=== PATIENT | female | born 1990 | race Caucasian/White ===

== ENCOUNTER 2019-05-10 13:08 | Emergency (ER) | payer OTHER, SELFPAY ==
[2019-05-10 13:15] VITALS: BP 107/72; PULSE 82; RESP 14; TEMP 36.3; O2SAT 98
--- NOTE | 2019-05-10 14:26 | ED.FALL ---
HPI - Fall <Scott Steve [facility] - Last Filed: 05/10/19 20:24> General Chief Complaint: Fall Stated Complaint: 28wks preg, had a fall Time Seen by Provider: 05/10/19 14:12 Source: patient and family Mode of arrival: ambulatory Limitations: no limitations History of Present Illness HPI Narrative: This is a 28-year-old female, nonsmoker, and 28 week EGA, presents with her significant other after she sustained a fall. Patient reports walking on a slippery ground with wearing slippers and fell and landed on her buttock on a rock. Patient denies injuring her abdomen area, vaginal bleeding, abdominal pain. Patient reports she has been feeling movement as usual. Patient denies any urinary symptoms. The patient is here to be evaluated and to ensure well-being. Related Data Home Medications Medication Instructions Recorded Confirmed PNV cmb#95-ferrous fumarate-FA 1 tab PO DAILY 05/10/19 05/10/19 [] Allergies Allergy/AdvReac Type Severity Reaction Status Date / Time cefprozil Allergy Unknown Verified 05/10/19 13:18 cephalexin [From Keflex] Allergy Unknown Verified 05/10/19 13:18 Penicillins Allergy Unknown Verified 05/10/19 13:18 Review of Systems <Scott Steve [facility] - Last Filed: 05/10/19 20:24> Review of Systems ROS Unobtainable: All systems reviewed & are unremarkable except as noted in HPI and below Exam <Sctot Steve [facility] - Last Filed: 05/10/19 20:24> Narrative Exam Narrative: General appearance: well developed, well nourished, in no acute distress. Head: normocephalic, atraumatic, no scalp lesions, non-tender. Eye: pupil equal, round. EOMI. Nose: nares patent. Oral: mucosa moist. Neck/Thyroid: neck supple, full range of motion, no visible masses. Skin: no suspicious rashes, lesions over visible areas. Warm and dry. Heart: no clubbing, no cyanosis, no edema. Regular rate and rhythm, S1 and S2 Lungs: Breathing even and unlabored. No stridor. No accessory muscles used. Lung sounds cleared bilaterally Chest: normal shape and expansion. Abdomen: non-obese, non-distended. Soft and nontender to palpate. Bowel sounds present in 4 quadrants. Neurologic: alert and oriented. Cognitive exam, [employer] and PNS grossly intact on informal exam. Psych: good eye contact, normal affect. Initial Vital Signs Initial Vital Signs: Vital Signs Temperature 97.4 F L 05/10/19 13:15 Pulse Rate 82 05/10/19 13:15 Respiratory Rate 14 05/10/19 13:15 Blood Pressure 107/72 05/10/19 13:15 Pulse Oximetry 98 05/10/19 13:15 Back/Spine/Pelvis Back: normal to inspection, No back tenderness, No CVA tenderness, No ecchymosis and No erythema Thoracic/Lumbar Spine: thoracic and lumbar spine normal to inspection, straight leg raise negative bilaterally, No paraspinal tenderness and No lumbar spinal tenderness Sacroiliac Joints: nontender <Marnie Sharif DO - Last Filed: 05/11/19 19:18> Initial Vital Signs Initial Vital Signs: Vital Signs Temperature 97.4 F L 05/10/19 13:15 Pulse Rate 82 05/10/19 13:15 Respiratory Rate 14 05/10/19 13:15 Blood Pressure 107/72 05/10/19 13:15 Pulse Oximetry 98 05/10/19 13:15 PFSH <DAVID Bautista - Last Filed: 05/10/19 20:24> Surgical History Hx of oral surgery (Acute) S/P reconstruction of anterior cruciate ligament (Acute) Social History Smoking Status: Never smoker Social History Smoking Status: Never smoker Course <DAVID Bautista - Last Filed: 05/10/19 20:24> Orders Ordered: ED Orders 05/10/19 14:07 Urine Microscopic Stat Vital Signs Vital signs: Vital Signs - 8 hr 05/10/19 13:15 Temperature 97.4 F L Pulse Rate 82 Respiratory Rate 14 Blood Pressure 107/72 Pulse Oximetry 98 <Marnie Sharif DO - Last Filed: 05/11/19 19:18> Orders Ordered: ED Orders 05/10/19 14:07 Urine Microscopic Stat Vital Signs Vital signs: Vital Signs - 8 hr 09/14/19 13:15 Temperature 97.4 F L Pulse Rate 82 Respiratory Rate 14 Blood Pressure 107/72 Pulse Oximetry 98 MDM - Fall <BRIANNE BautistaP - Last Filed: 05/10/19 20:24> Differential Diagnosis Differential diagnosis: Likely other (Contusion to buttock, fall, monitoring) Medical Records Attestation: I reviewed the patient's medical records. Lab Data Labs: Lab Results 05/10/19 Range/Units 14:07 Urine RBC None seen (0-5/HPF) Urine WBC 0-1/hpf (0-5/HPF) Ur Squamous Epith Cells 0-1 /hpf (0-5/HPF) Urine Bacteria None seen (None) Ur Culture Indicated? Cult not indicated Urine Dip Bedside Urine Glucose Negative Bedside Urine Bilirubin - Negative Bedside Urine Ketone - Negative Urine Specific [place] 1.015 Bedside Urine Occult Blood - Negative Bedside Urine pH 6.0 Bedside Urine Protein +/- 15 Bedside Urine Urobilinogen +/- 1mg Bedside Urine Nitrite - Negative Bedside Urine Leukocytes +/- 15 Esterase [facility] Narrative Medical decision making narrative: This patient has presented to ED with significant other for an evaluation after slipped and fall onto her buttock and well-being. The patient reports no direct trauma to after from this fall. Patient denies vaginal bleeding or abdominal pain after the fall. The abdomen was soft and nontender to palpate. Patient has been feeling movement as knee usual. heart tone per Doppler test was in 130s in the ED. Urine test was obtained and shows no RBC or bacteria. Return precautions were discussed with the patient and patient was advised to follow up with her director of psychiatry in 2-3 days and continue with her current medications and Tylenol as needed for discomfort. Patient agrees with treatment plan and no further questions were expressed at this time. <Marnie Sharif DO - Last Filed: 05/11/19 19:18> Lab Data Labs: Lab Results 05/10/19 Range/Units 14:07 Urine RBC None seen (0-5/HPF) Urine WBC 0-1/hpf (0-5/HPF) Ur Squamous Epith Cells 0-1 /hpf (0-5/HPF) Urine Bacteria None seen (None) Ur Culture Indicated? Cult not indicated Urine Dip Bedside Urine Glucose Negative Bedside Urine Bilirubin - Negative Bedside Urine Ketone - Negative Urine Specific [place] 1.015 Bedside Urine Occult Blood - Negative Bedside Urine pH 6.0 Bedside Urine Protein +/- 15 Bedside Urine Urobilinogen +/- 1mg Bedside Urine Nitrite - Negative Bedside Urine Leukocytes +/- 15 Esterase Discharge Plan Departure Patient Disposition: Home Clinical Impression: Fall Qualifiers: Encounter type: initial encounter Qualified Code(s): W19.XXXA - Unspecified fall, initial encounter Contusion, buttock Qualifiers: Encounter type: initial encounter Qualified Code(s): S30.0XXA - Contusion of lower back and pelvis, initial encounter Discharge Date/Time: 05/10/19 15:12 Instructions: DI for Contusion Activity Restrictions/Additional Instructions: You have been diagnosed with [fall, contusion to buttock, . The urine test does not appears to be having an infection.]. What to do: *Take your medications as directed. You can take [id number] Tylenol as needed for discomfort. *Follow up with your primary care provider in 2-3 days, call for an appointment. Let them know you were seen in the ED and that we asked you to be seen in follow up. *Return to ED if you have any new, worsening, or concerning symptoms, such as [vaginal bleeding, decreased movement even after you take large glass of water and resting on left side for an hour, abdominal pain, chest pain, breathing difficulty, unable to tolerate fluids, dizziness, any other acute concerns, weakness to extremities, incontinence, loss of sensation in groin area]. Prescriptions: No Action PNV cmb#95-ferrous fumarate-FA [] 28 mg iron- 800 mcg tablet 1 tab PO DAILY RF: 0 Referrals: Kalpana Turner ARNP [Non-Staff] -
[2019-05-10 14:48] LABS: Bacteria Urine None Seen; RBC Urine None Seen (0-5/HPF)
[2019-05-10 14:56] LABS: Culture Indicated Urine Cult Not Indicated; Squamous Epithelial Cell Urine 0-1 /HPF (0-5/HPF); WBC Urine 0-1/HPF (0-5/HPF)
== END 2019-05-10 15:12 | disposition home or self-care (01) ==
PROVIDERS: Emergency Provider Nurse Practitioner Family
DX: S30.0XXA Contusion of lower back and pelvis, initial encounter (principal); W19.XXXA Unspecified fall, initial encounter
CPT/HCPCS: 81003; 81015; 99282; 99283

== ENCOUNTER 2020-08-25 13:13 | Emergency (ER) | payer OTHER, SELFPAY ==
[2020-08-25 13:27] VITALS: BP 139/73; PULSE 79; RESP 16; TEMP 36.2; O2SAT 99; BMI 37.2
[2020-08-25 13:55] LABS: Add Manual Diff / Slide Review NO; Basophils Absolute Auto 0 /uL (0-100); Basophils Percent Auto 0.6 % (0-2); Eosinophils Absolute Auto 200 /uL (0-450); Eosinophils Percent Auto 2.1 % (2-4); Hematocrit 40.7 % (36-46); Hemoglobin 13.4 g/dL (12.0-16.0); Lymphocytes Absolute Auto 2000 /uL (1100-4500); Mean Corpuscular HGB Conc 32.9 % (30-36); Mean Corpuscular Volume 88.2 fL (80-100); Monocytes Absolute Auto 500 /uL (0-900); Neutrophils Absolute Auto 5400 /uL (1500-7000); Neutrophils Percent Auto 66.3 % (50-75); Platelet Count 270 X10^3/uL (150-400); Red Blood Cell Count 4.62 X10^6/uL (4.0-5.2); Red Cell Distribution Width 12.8 % (11.6-14.8); White Blood Cell Count 8.1 X10^3/uL (4.5-11.0)
[2020-08-25 13:58] LABS: BUN Creatinine Ratio 17.8 (6-22); Blood Urea Nitrogen 13 mg/dL (7-17); Calcium 9.3 mg/dL (8.4-10.2); Carbon Dioxide 30 mmol/L (22-32); Chloride 103 mmol/L (98-107); Estimated Glomerular Filt Rate > 60.0 mL/min (>60); Glucose 97 mg/dL (70-100); HEMOLYSIS < 15 (0-50); Potassium 4.4 mmol/L (3.4-5.1); Sodium 138 mmol/L (137-145)
--- NOTE | 2020-08-25 14:04 | ED_ITS ---
HPI - Psych General Chief Complaint: Psychiatric Symptoms Stated Complaint: On Tum[place]acori-Carmen 5weeks/panic/dizzy/head pain x1 week Time Seen by Provider: 08/25/20 13:25 Source: patient Mode of arrival: Ambulatory Limitations: no limitations History of Present Illness HPI Narrative: Patient is a 30-year-old female with history of severe depression and anxiety presenting with possible medication reaction. She states that she has been on multiple antidepressant and antianxiety medications in the past. She has actually been hospitalized a few times in [place] after cutting herself. She was and then breast feeding and was unable to take any other medication besides Zoloft which was not helping. Is 5 weeks ago she was started on lithium. And she says 3 weeks ago the lithium dose was increased boost Brown was also added to her regimen. She said once the buspirone was added she started not feeling well. She woke up in the middle of the night with severe chest pain feeling like she could not breathe in december not . The feeling lasted for a few minutes and went away. She took the buspirone for about 1 week and then stopped thinking that she might start feeling better. She has not been on the medication for week but has continued her increased dose of lithium. She continues to not feel right. She has severe chest pain and anxiety mostly at nighttime when she lies down. She was supposed to have an appointment today but was supposed to get blood work done. She was not given a blood slip so she did not have blood work in the therefore would not see her. She is in the emergency department to be evaluated She denies any suicidal or homicidal ideations Related Data Home Medications Medication Instructions Recorded Confirmed PNV b#95-ferrous fumarate-FA 1 tab PO DAILY 05/10/19 05/10/19 [] Allergies Allergy/AdvReac Type Severity Reaction Status Date / Time cefprozil Allergy Unknown Verified 08/25/20 13:26 cephalexin [From Keflex] Allergy Unknown Verified 08/25/20 13:26 Penicillins Allergy Unknown Verified 08/25/20 13:26 Review of Systems Review of Systems Narrative: GENERAL: Denies chills, fatigue, malaise, fever, sweats, travel HEENT: Denies sinus pain, ear pain, sore throat, difficulty swallowing, neck pain RESPIRATORY: Denies dyspnea, cough, wheezing, hemoptysis, sputum. CARDIOVASCULAR: Denies chest pain, palpitations, orthopnea, edema GASTROINTESTINAL: Denies nausea, vomiting, abdominal pain, diarrhea, constipation, melena. : Denies dysuria, frequency, incontinence, hematuria, urinary retention, flank pain. MUSCULOSKELETAL: Denies weakness, joint pain, or bony pain SKIN: No rash, no erythema, no pruritus NEUROLOGIC: Denies weakness, dizziness, headache, numbness, change in speech, confusion PSYCHIATRIC: See HPI 12 point review of systems is negative except for those stated above and HPI Patient History Surgical History Hx of oral surgery S/P reconstruction of anterior cruciate ligament Social History Smoking Status: Never smoker Smoking Status: Never smoker alcohol intake frequency: holidays/special occasions only Substance Use Type: does not use Exam Initial Vital Signs Initial Vital Signs: Vital Signs Temperature 97.2 F L 08/25/20 13:27 Pulse Rate 79 08/25/20 13:27 Respiratory Rate 16 08/25/20 13:27 Blood Pressure 139/73 08/25/20 13:27 Pulse Oximetry 99 08/25/20 13:27 GENERAL: [Well-appearing, well-nourished] and in [no acute] distress. HEENT: Head atraumatic,EOMI, pupils reactive, face symmetric, moist mucous membranes CARDIOVASCULAR: Regular rate and rhythm without murmurs, rubs or gallops. RESPIRATORY: Breath sounds equal bilaterally, no wheezes rales or rhonchi EXTREMITIES: Normal range of motion, no clubbing or edema. Neurovascularly intact NEUROLOGICAL: Alert and oriented x4. SKIN: Warm, dry, no laceration, no petechiae, no rashes or lesions. Course Orders Ordered: ED Orders 08/25/20 13:38 Basic Metabolic Panel Stat Complete Blood Count AUTO DIFF Stat [place]Carmen Stat 08/25/20 13:57 EKG-12 Lead Stat Vital Signs Vital signs: Vital Signs - 8 hr 08/25/20 13:27 08/25/20 16:03 Temperature 97.2 F L Pulse Rate 79 62 Respiratory Rate 16 18 Blood Pressure 139/73 116/77 Pulse Oximetry 99 100 MDM - Psych Lab Data Attestation: I reviewed the patient's lab results. Result diagrams: 08/25/20 13:38 12/30/20 13:38 Labs: Lab Results 08/25/20 08/25/20 08/25/20 Range/Units 13:38 13:38 13:38 WBC 8.1 (4.5-11.0) X10^3/uL RBC 4.62 (4.0-5.2) X10^6/uL Hgb 13.4 (12.0-16.0) g/dL Hct 40.7 (36-46) % MCV 88.2 (80-100) fL MCH 29.0 (26-34) PG MCHC 32.9 (30-36) % RDW 12.8 (11.6-14.8) % Plt Count 270 (150-400) X10^3/uL Neut % (Auto) 66.3 (50-75) % Lymph % (Auto) 25.0 (25-40) % [place] % (Auto) 6.0 (3-14) % Eos % (Auto) 2.1 (2-4) % Baso % (Auto) 0.6 (0-2) % Neut # (Auto) 5400 (1896-6077) /uL Lymph # (Auto) 2000 (8344-1532) /uL [place] # (Auto) 500 (0-900) /uL Eos # (Auto) 200 (0-450) /uL Baso # (Auto) 0 (0-100) /uL Sodium 138 (137-145) mmol/L Potassium 4.4 (3.4-5.1) mmol/L Chloride 103 (98-107) mmol/L Carbon Dioxide 30 (22-32) mmol/L BUN 13 (7-17) mg/dL Creatinine 0.73 (0.52-1.04) mg/dL Estimated GFR > 60.0 (>60) mL/min BUN/Creatinine Ratio 17.8 (6-22) Glucose 97 (70-100) mg/dL Calcium 9.3 (8.4-10.2) mg/dL [place]-Carmen < 0.2 L (0.6-1.2) mmol/L ECG Data Attestation: I personally reviewed and interpreted this ECG as follows: Interpretation: Normal sinus rhythm rate 62 p.r. interval 199 QRS [address] changes who T-wave inversion noted in lead 3 only no priors to compare MDM Narrative Medical decision making narrative: [id number] spoke with Tegan at the patient's psychiatrist who recommend patient take hydroxyzine she is not taking hyd roxyzine. Also states that she will call in Ativan as as needed medication to [facility] for the patient. Recommend patient see them in clinic next week. No other changes at this time Discharge Plan Departure Patient Disposition: Home Clinical Impression: Adverse drug reaction, Anxiety reaction Instructions: DI for Anxiety -- Adult Activity Restrictions/Additional Instructions: *You have been diagnosed with anxiety reaction, drug reaction *What to do: At this time, your provider will call in prescription for Ativan intake as needed. She recommends that you see her next week in the office. No need for blood work it was done in the emergency department. [place]-Carmen level less than 0.2 *Continue to take medications as directed Hydroxyzine as prescribed *Follow up with your primary care provider in 2-3 days *Return to ER if you should have increased chest pain, palpitations, anxiety, thoughts of hurting self or any new, worsening or concerning symptoms Prescriptions: No Action PNV cmb#95-ferrous fumarate-FA [] 28 mg iron- 800 mcg tablet 1 tab PO DAILY RF: 0 Referrals: Aston,Tegan, [facility] [Non-Staff] -
[2020-08-25 14:15] LABS: Lithium < 0.2 mmol/L (0.6-1.2)
[2020-08-25 16:03] VITALS: BP 116/77; PULSE 62; RESP 18; O2SAT 100
== END 2020-08-25 16:03 | disposition home or self-care (01) ==
PROVIDERS: Emergency Provider Emergency Medicine
DX: F41.1 Generalized anxiety disorder (principal); T50.905A Adverse effect of unspecified drugs, medicaments and biological substances, initial encounter; R51.9 Headache, unspecified; F32.9 Major depressive disorder, single episode, unspecified; R07.9 Chest pain, unspecified
CPT/HCPCS: 80048; 80178; 85025; 93005; 99283; 99284

== ENCOUNTER → 2020-10-22 12:03 | Outpatient (CLI) | payer OTHER, SELFPAY ==
[2020-10-22 12:42] LABS: Add Manual Diff / Slide Review NO; Basophils Absolute Auto 100 /uL (0-100); Basophils Percent Auto 0.6 % (0-2); Eosinophils Absolute Auto 100 /uL (0-450); Eosinophils Percent Auto 0.9 % (2-4); Hematocrit 39.5 % (36-46); Hemoglobin 13.4 g/dL (12.0-16.0); Lymphocytes Absolute Auto 2000 /uL (1100-4500); Lymphocytes Percent Auto 19.2 % (25-40); Mean Corpuscular HGB Conc 33.9 % (30-36); Mean Corpuscular Hemoglobin 29.4 PG (26-34); Mean Corpuscular Volume 86.8 fL (80-100); Monocytes Absolute Auto 600 /uL (0-900); Neutrophils Absolute Auto 7500 /uL (1500-7000); Neutrophils Percent Auto 73.3 % (50-75); Platelet Count 248 X10^3/uL (150-400); Red Blood Cell Count 4.55 X10^6/uL (4.0-5.2); Red Cell Distribution Width 12.9 % (11.6-14.8); White Blood Cell Count 10.2 X10^3/uL (4.5-11.0)
[2020-10-22 13:17] LABS: UR Morphine/Opiate cutoff 300 Negative (Negative); Ur Creatinine Normal (Normal); Ur Specific Gravity Normal (Normal); Urine Amphetamines Negative (Negative); Urine Barbiturates Negative (Negative); Urine Benzodiazepines Negative (Negative); Urine Cocaine Negative (Negative); Urine MDMA Negative (Negative); Urine Methadone Negative (Negative); Urine Methamphetamines Negative (Negative); Urine Oxycodone Negative (Negative); Urine Phencyclidine Negative (Negative); Urine Tetrahydrocannabinol Negative (Negative); Urine Tricyclic Antidepressant Negative (Negative); Urine pH Normal (Normal)
[2020-10-22 13:21] LABS: Hepatitis B Surface Antigen NEGATIVE s/c (NEGATIVE); Rubella Antibody IgG 8.7 IU/mL (>15)
[2020-10-22 13:32] LABS: HIV 1 & 2 Ab/Ag 4th Gen Combo NEGATIVE (NEGATIVE)
[2020-10-22 13:38] LABS: Hep C Virus Ab w/Reflex Quant NEGATIVE s/c (NEGATIVE)
[2020-10-22 15:16] LABS: Appearance Urine UA TURBID; Bilirubin Urine UA NEGATIVE (NEGATIVE); Color Urine UA YELLOW; Glucose Urine UA NEGATIVE (Negative); Ketones Urine UA NEGATIVE (NEGATIVE); Leukocyte Esterase Urine UA 1+ (NEGATIVE); Nitrite Urine UA NEGATIVE (Negative); Occult Blood Urine UA NEGATIVE (Negative); Protein Urine UA NEGATIVE (Negative); Urobilinogen Urine UA 0.2 E.U./dL (0.2)
[2020-10-22 15:29] LABS: pH Urine UA 6.5 (4.5-8.0)
[2020-10-22 15:30] LABS: Bacteria Urine Many (>30); RBC Urine 0-1/HPF (0-5/HPF); Squamous Epithelial Cell Urine >30 /HPF (0-5/HPF); WBC Urine 0-1/HPF (0-5/HPF)
[2020-10-23 03:40] LABS: RPR Screen Non Reactive (Non Reactive)
[2020-10-23 08:28] LABS: Varicella IgG Antibody 413 index (Immune >165)
== END ==
PROVIDERS: PCP Family Medicine; Referring Provider Family Medicine; Visit Provider Family Medicine
DX: Z34.81 Encounter for supervision of other normal pregnancy, first trimester (principal); Z02.83 Encounter for blood-alcohol and blood-drug test
CPT/HCPCS: 36415; 80055; 80305; 81003; 81015; 86787; 86803; 86850; 86900; 86901; 87077; 87086; 87389